=== PATIENT | male | born 1985 | race Caucasian/White ===

== ENCOUNTER 2017-07-20 14:31 | Emergency (ER) | payer OTHER ==
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
[2017-07-20 15:36] VITALS: BP 117/85; PULSE 97; RESP 18; TEMP 98.8; O2SAT 94
== END 2017-07-20 15:40 | disposition home or self-care (01) ==
DX: S16.1XXA Strain of muscle, fascia and tendon at neck level, initial encounter (principal); E11.9 Type 2 diabetes mellitus without complications; V43.52XA Car driver injured in collision with other type car in traffic accident, initial encounter; Y92.410 Unspecified street and highway as the place of occurrence of the external cause; Y99.8 Other external cause status; Y93.89 Activity, other specified